=== PATIENT | male | born 1950 | race Caucasian/White ===

== ENCOUNTER → 2019-07-25 10:43 | Outpatient (CLI) | payer MEDICARE, SELFPAY ==
--- NOTE | ~2019-07-25 | US_ITS ---
US right upper quadrant INDICATION: Elevated liver function tests PROCEDURE: Realtime right upper abdominal ultrasound. COMPARISON: No prior studies for comparison. FINDINGS: The pancreas is normal without focal mass or pancreatic ductal dilation. Liver echotexture is normal without focal mass or intrahepatic biliary dilatation. There is normal directional flow i n the portal vein. There are gallstones. Common bile duct measures 5 mm. No sonographic Wilcox's sign. IMPRESSION: 1: Cholelithiasis. Reviewed, dictated and finalized at location B. [employer] IMPRESSION: 1: Cholelithiasis.
== END ==
PROVIDERS: PCP Internal Medicine; Visit Provider Internal Medicine
DX: R94.5 Abnormal results of liver function studies (principal); K80.20 Calculus of gallbladder without cholecystitis without obstruction
CPT/HCPCS: 76705

== ENCOUNTER 2020-03-19 14:03 | Emergency (ER) | payer MEDICARE, SELFPAY ==
[2020-03-19 14:16] VITALS: BP 170/101; PULSE 77; RESP 16; TEMP 36.4; O2SAT 100
[2020-03-19] MEDS: cloNIDine HCL 0.1 MG TABLET PO (14:33)
--- NOTE | 2020-03-19 14:39 | ED.GENADULT ---
HPI - General Adult General Chief complaint: Unspecified Stated complaint: High Blood Pressure Source: patient and RN notes reviewed Mode of arrival: ambulatory Limitations: no limitations History of Present Illness HPI narrative: This is a 69-year-old white male who presented to the urgent care today complaining of high blood pressure. His blood pressure is currently 170/101 he did receive clonidine 0.1 mg. According to patient he has not had taken his high blood pressure medication which is lisinopril 40 mg daily because he is in between primary care physicians. I did explain to patient that we are only going to give him a limited supply which is 2 weeks that he will need to follow-up with his primary care physician so that his blood pressure can be monitored closely. Patient has agreed to follow-up with his primary care physician for new prescription and to closely monitor his blood pressure. Associated symptoms with his high blood pressure is occasional headache. Patient does take his own blood pressure at home and knows that he has been in the 170-180/100's. Educated on side effects of not controlling his blood pressure such as CVA. There is a note in the patient's chart indicating that he must go to his primary care physician to refill his medication. Once again patient given a limited supply of lisinopril until he can locate a new PCP. MD complaint: Hypertension Related Data Home Medications Medication Instructions Recorded Confirmed lisinopril 40 mg PO DAILY 03/19/20 03/19/20 Allergies Allergy/AdvReac Type Severity Reaction Status Date / Time iodine Allergy Hives Verified 03/19/20 14:22 Review of Systems Review of Systems: All systems reviewed & are unremarkable except as noted in HPI and below (10 point system review) Exam Narrative: Exam Narrative: GENERAL: This is a well-nourished, well-developed patient, in no apparent distress. HEAD: normocephalic, atraumatic. EYES: PERRL. Sclera clear/white. Vision is grossly intact. EARS: External ears normal, auditory canals clear and without drainage, TMs normal without perforation. Hearing grossly intact. NOSE: External nose normal with no obvious nasal discharge, nares without redness, no rhinorrhea. THROAT: Mucous membranes moist, posterior pharynx clear. NECK: Neck supple, non-tender without lymphadenopathy, masses or thyromegaly. CARDIOVASCULAR: Regular rate and rhythm without murmurs, gallops, or rubs. RESPIRATORY: Clear to auscultation. Breath sounds equal bilaterally. No wheezes, rales, or rhonchi. GASTROINTESTINAL: Abdomen soft, non-tender, nondistended. Bowel sounds are active. No hepato-splenomegaly, or palpable masses. No guarding. SKIN: warm, intact with no suspicious lesions or rash, good texture and turgor. NEURO: awake, alert, and oriented to person, place and time. There were no obvious focal neurologic abnormalities. Steady gait EXTREMITIES: Normal range of motion. No edema. No calf tenderness. Negative Homans sign bilaterally. BACK: Nontender without deformity or crepitance. No flank tenderness. Course Course Emergency Course: Patient given clonidine 0.1 mg one-time and 2-week supply of lisinopril 40 mg daily with strict instructions to follow-up with his primary care physician to better control his blood pressure. Vital Signs Vital signs: Vital Signs Temperature 97.6 F 03/19/20 14:16 Pulse Rate 77 03/19/20 14:16 Respiratory Rate 16 03/19/20 14:16 Blood Pressure 170/101 H 03/19/20 14:16 Pulse Oximetry 100 03/19/20 14:16 Temperature 97.6 F 03/19/20 14:16 Pulse Rate 77 03/19/20 14:16 Respiratory Rate 16 03/19/20 14:16 Blood Pressure 170/101 H 03/19/20 14:16 Pulse Oximetry 100 03/19/20 14:16 Medical Decision Making Differential Diagnosis Differential Diagnosis: hypertension , hypertension crisis Vital Signs Vital Signs: Vital Signs Temperature 97.6 F 03/19/20 14:16 Pulse Rate 77 03/19/20 14:16 Respira
--- NOTE | 2020-03-19 14:47 | ED.GENADULT ---
HPI - General Adult General Chief complaint: Unspecified Stated complaint: High Blood Pressure Source: patient and RN notes reviewed Mode of arrival: ambulatory Limitations: no limitations History of Present Illness HPI narrative: This is a 69-year-old white male who presented to the urgent care today with complaints elevated blood pressure. According to patient he has been taking his blood pressure the last several days with readings being 170-180/100s. According to patient he has not taken his blood pressure medication for 2 weeks because he has ran out of medication. Patient is currently in between primary care physician. This visit he was given clonidine 0.1 mg 1 time. I have prescribed the patient 2 weeks lisinopril 40 mg daily with strict instructions to follow-up with his primary care physician for additional refills I also educated the patient on the risk of not being compliant with medication such as CVA. Associated symptoms with high blood pressures patient no headache. The patient denies SOB, CP, palpitation, extremity numbness, lightheadedness, dizziness, constipation, diarrhea, chills, or fever. Related Data Home Medications Medication Instructions Recorded Confirmed lisinopril 40 mg PO DAILY 03/19/20 03/19/20 Allergies Allergy/AdvReac Type Severity Reaction Status Date / Time iodine Allergy Hives Verified 03/19/20 14:22 Course Vital Signs Vital signs: Vital Signs Temperature 97.6 F 03/19/20 14:16 Pulse Rate 77 03/19/20 14:16 Respiratory Rate 16 03/19/20 14:16 Blood Pressure 170/101 H 03/19/20 14:16 Pulse Oximetry 100 03/19/20 14:16 Temperature 97.6 F 03/19/20 14:16 Pulse Rate 77 03/19/20 14:16 Respiratory Rate 16 03/19/20 14:16 Blood Pressure 170/101 H 03/19/20 14:16 Pulse Oximetry 100 03/19/20 14:16 Medical Decision Making Vital Signs Vital Signs: Vital Signs Temperature 97.6 F 03/19/20 14:16 Pulse Rate 77 03/19/20 14:16 Respiratory Rate 16 03/19/20 14:16 Blood Pressure 170/101 H 03/19/20 14:16 Pulse Oximetry 100 03/19/20 14:16 Temperature 97.6 F 03/19/20 14:16 Pulse Rate 77 03/19/20 14:16 Respiratory Rate 16 03/19/20 14:16 Blood Pressure 170/101 H 03/19/20 14:16 Pulse Oximetry 100 03/19/20 14:16 Discharge Plan Discharge Patient Disposition: Home, Self-Care Condition: Stable Instructions: Antibiotic Form, Hypertensive Crisis (ED) Additional Instructions: You will need to follow-up with your primary care physician for additional medication refills Please ALEXIS schedule a followup visit with your personal physician for further evaluation and treatment. Also, ask your personal physician to assist you regarding blood pressure. Even blood pressure exceeding 120/80 may indicate pre-hypertension. If your symptoms persist, change or worsen significantly before you can contact your personal physician then please, without delay, go to the emergency department for further evaluation. Prescriptions: New lisinopril 20 mg tablet 40 mg PO DAILY Qty: 15 RF: 0 No Action lisinopril 40 mg Tablet 40 mg PO DAILY RF: 0 Follow-up/Referrals: UNKNOWN,DOCTOR [Primary Care Provider] - Time of Disposition: 14:38
[2020-03-19 14:56] VITALS: BP 154/80
== END 2020-03-19 15:00 | disposition home or self-care (01) ==
PROVIDERS: Emergency Provider Nurse Practitioner
DX: I10 Essential (primary) hypertension (principal); Z91.14 Patient's other noncompliance with medication regimen
CPT/HCPCS: 99213; A9270; G0463